=== PATIENT | female | born 1960 | race Caucasian/White ===

== ENCOUNTER 2020-12-22 19:16 | Emergency (ER) | payer MEDICARE ==
[2020-12-22 23:39] LABS: HEMOGLOBIN 14.4 gm/dl (12.3-15.3); RED BLOOD COUNT 4.52 M/UL (4.00-5.10); WHITE BLOOD COUNT 8.6 K/UL (4.5-11.0)
[2020-12-23 00:01] LABS: BUN/CREATININE RATIO 39 (0-10)
== END 2020-12-23 02:29 | disposition home or self-care (01) ==
LOC: ER1 19:16
PROVIDERS: Physician Assistant
DX: G89.18 Other acute postprocedural pain (principal); M54.2 Cervicalgia; E78.5 Hyperlipidemia, unspecified; E11.9 Type 2 diabetes mellitus without complications; I10 Essential (primary) hypertension; Z88.0 Allergy status to penicillin; Z88.1 Allergy status to other antibiotic agents
CPT/HCPCS: 80053; 85025; 85652; 86140; 99284; Q9967

== ENCOUNTER → 2020-12-29 | Outpatient (CLI) | payer MEDICARE | LOC: MAMO 10:52 | DX: Z12.31 Encounter for screening mammogram for malignant neoplasm of breast (principal) | CPT/HCPCS: 77063; 77067 ==